=== PATIENT | male | born 1975 | race Caucasian/White ===

== ENCOUNTER 2024-09-13 19:27 | Emergency (ER) | payer MEDICAID ==
[~2024-09-13] VITALS: Ht 175.3 cm; Wt 94.5 kg
[2024-09-13] MEDS ORDERED: IBUP-1506 PO (19:36)
[2024-09-13 21:53] VITALS: BP 125/72; PULSE 79; RESP 20; TEMP 98.1; O2SAT 96
[2024-09-13] MEDS ORDERED: IBUP-1492 PO (21:54)
[2024-09-13] MEDS ORDERED: CYCL-448 PO (21:54)
== END 2024-09-13 22:16 | disposition home or self-care (01) ==
LOC: EMS 19:29
DX: M62.838 Other muscle spasm (principal); M50.30 Other cervical disc degeneration, unspecified cervical region; M47.812 Spondylosis without myelopathy or radiculopathy, cervical region; R51.9 Headache, unspecified
CPT/HCPCS: 70450; 72125; 99284